=== PATIENT | female | born 1975 | race Caucasian/White ===

== ENCOUNTER 2021-02-14 09:19 | Emergency (ER) | payer OTHER | END 2021-02-14 10:05 | disposition home or self-care (01) | LOC: ER1 09:19 | DX: R22.0 Localized swelling, mass and lump, head (principal); E11.9 Type 2 diabetes mellitus without complications; Z87.442 Personal history of urinary calculi; Z90.710 Acquired absence of both cervix and uterus | CPT/HCPCS: 96372; 99283; J2930 ==

== ENCOUNTER 2022-02-24 15:44 | Emergency (ER) | payer OTHER ==
[2022-02-24 18:36] LABS: HEMOGLOBIN 14.2 gm/dl (12.3-15.3); RED BLOOD COUNT 4.81 M/UL (4.00-5.10); WHITE BLOOD COUNT 7.9 K/UL (4.5-11.0)
[2022-02-24 18:56] LABS: BUN/CREATININE RATIO 21 (0-10)
== END 2022-02-24 20:42 | disposition home or self-care (01) ==
LOC: ER1 15:44
PROVIDERS: Preventive Medicine Occupational Medicine
DX: U07.1 COVID-19 (principal); E11.9 Type 2 diabetes mellitus without complications
CPT/HCPCS: 0240U; 71045; 80053; 81001; 82550; 82553; 83690; 83880; 84484; 85025; 85652; 86140; 87086; 93005; 99285

== ENCOUNTER → 2022-04-26 | Outpatient (CLI) | payer OTHER | LOC: LAB 10:20 | DX: G56.02 Carpal tunnel syndrome, left upper limb (principal); Z20.822 Contact with and (suspected) exposure to COVID-19 | CPT/HCPCS: U0002 ==